=== PATIENT | male | born 1990 | race Caucasian/White ===

== ENCOUNTER 2024-12-06 10:13 | Outpatient (OUT) | payer MEDICAID, SELFPAY ==
--- NOTE | 2024-12-06 10:28 | CT_ITS ---
The [address] [address] Patient Name: KIANNA GUO MRN: [id number] date: 1990 Sex: M Assigned Patient Location: CT Current Patient Location: CT Accession/Order Number: [id number] Exam Date: 12/06/2024 11:46 Report Date: 12/06/2024 11:48 At the request of: BERT VERONICA MD Procedure: CT sinus wo con CT PARANASAL SINUSES WITHOUT CONTRAST: CLINICAL HISTORY: Chronic Sinusitis COMPARISON: None TECHNIQUE: Contiguous axial unenhanced images were obtained through the paranasal sinuses. Coronal reconstructions were also performed. This CT exam was performed using one or more following dose reduction techniques: Automated exposure control, adjustment of the mA and/or kV according to patient size, or use of iterative reconstruction technique. FINDINGS: Frontal sinuses are clear. Ethmoid sinuses are clear. Minimal mucoperiosteal thickening involving the sphenoid sinuses. Mild mucosal polypoid thickening involving the maxillary sinuses. Nasal septum is slightly deviated towards the right. Ostiomeatal complexes appear patent. No bony destruction or air-fluid levels. Intraorbital contents appear unremarkable. No significant soft tissue swelling is seen. Nasopharynx appears unremarkable. CT/CT sinus wo con IMPRESSION: MILD SINUS DISEASE INVOLVING THE SPHENOID AND MAXILLARY SINUSES. NO AGGRESSIVE SINUSITIS IS SEEN. Impression dictated by: Oleksandr Ordonez Jr., D.O.12/06/2024 11:48 AM Dictation Location: [place] [address] Electronically authenticated by: [id number] Y Date: 12/06/2024 11:48
== END 2024-12-06 10:14 | disposition home or self-care (01) ==
LOC: CT 10:13
PROVIDERS: PCP Family Medicine; Visit Provider Family Medicine
DX: J32.9 Chronic sinusitis, unspecified (principal)
CPT/HCPCS: 70486